=== PATIENT | female | born 1975 | race Two or more races ===

== ENCOUNTER 2024-09-24 13:45 | Emergency (ER) | payer OTHER ==
[~2024-09-24] VITALS: Ht 152.4 cm; Wt 72.6 kg
[2024-09-24 15:37] VITALS: BP 159/93; O2SAT 100
[2024-09-24] MEDS ORDERED: CLONAZEPAM2 M1 PO (15:37)
[2024-09-24] MEDS ORDERED: ZESTRIL10 M1 PO (15:37)
[2024-09-24] MEDS ORDERED: INDERAL LA80 MG PO (15:37)
[2024-09-24] MEDS ORDERED: FAMOTIDINE/PF 20 MG/2 ML VIAL IV PUSH STA (16:53)
[2024-09-24] MEDS ORDERED: KETOROLAC TROMETHAMINE 15 MG VIAL IV STA (16:53)
== END 2024-09-24 17:29 | disposition home or self-care (01) ==
LOC: ER 13:45
DX: R53.81 Other malaise (principal); R51.9 Headache, unspecified; F10.129 Alcohol abuse with intoxication, unspecified